=== PATIENT | female | born 1950 | race Caucasian/White ===

== ENCOUNTER → 2023-04-10 01:55 | Outpatient (CLI) | payer MEDICARE, OTHER, SELFPAY ==
[2023-04-10] MEDS: Regadenoson 0.4 MG/5 ML SYR IVP (13:23)
--- NOTE | 2023-04-10 13:45 | DI.NM_ITS ---
APPROVED REPORT Exam: Pharmacologic Patient Location: Out-Patient Room/Bed: Stress Nurse: Brianna Tapia RN Ordering Provider:ISSAC MONTENEGRO, Contact Number: BMI: 26.77 Baseline Rhythm: Sinus Rhythm Comment: PVC's, intermittent bigeminy Indications: SOB, Chest pain, COPD Medical History Medical History: Emphysema, COPD, HTN, HLD, hypothyroidism, Depression, Essential tremor Cardiac Medications: Losartan, Albuterol, Rosuvastatin, Timolol Maleate Allergies: Ibuprofen, simvastatin Cardiac Risk Factors: HTN, HLD, Current smoker, COPD Previous Cardiac Procedures: None Pretest Chest Pain Characteristics: None Exercise History: Sedentary Physical Disabilities: Essential tremor, unsteady gait Lung Sounds: Diminished throughout Heart Sounds: Regular Stress Test Details Test: Pharmacologic stress testing performed using 0.4 mg of regadenoson per 5 mL given IV over 10 s econds. Reason for pharmacologic stress test: physical limitation, safety. Nuclear Acquisition: Rest Tc-99m/Stress Tc-99m 1 day Rest Isotope: Tc-99m Sestamibi. Dose: 10 Date: 04/10/2023 Injection Time: 11:00 Stress Isotope: Tc-99m Sestamibi. Dose: 31 Date: 04/10/2023 Injection Time: 13:10 HR Resting HR Supine: 65 bpm Max Heart Rate (APMHR): 149 bpm Resting HR Standin bpm Target HR (85% APMHR): 127 bpm Max HR Achieved: 77 bpm % of APMHR: 52 Recovery HR: 69 bpm BP Resting BP Supine: 156/60 mmHg Resting BP Standin/60 mmHg Max BP: 156/60 mmHg Recovery BP: 104/60 mmHg ECG Resting ECG: Clear Ectopy: PVC's, Bigeminy Stress ECG: Sinus Rhythm ST Change: No significant ST segment changes noted Arrhythmia: Bigeminy, Trigeminy Recovery ECG: Sinus Rhythm Recovery ST Change: No significant ST segment changes noted Recovery Arrhythmia: Frequent PVC's Clinical Stress Symptoms: shortness of breath Rate Pressure Product: [id number] Stress ECG Conclusion 1. Resting electrocardiogram showed nondiagnostic ST-T abnormalities 2. Patient underwent testing using pharmacologic stress with regadenoson 3. Peak heart rate achieved was 52% of predicted for age 4. PVCs were noted including periods of bigeminy 5. See MPI report Stress Test Summary STAGE HR BP SpO2 Symptoms NOTES Supine 65 156/60 97% Standing 67 116/60 1 min post Lexiscan injection 77 100/80 shortness of breath 3 min post Lexiscan injection 71 104/54 6 min post Lexiscan injection 69 104/60 98% Attempted walking lexiscan but patient was very temulous and there was increased artificat on 12 lead . Team had the patient return to the stretcher to complete test as a laying lexiscan. MPI Conclusion Myocardial perfusion is normal. There is no ischemia or evidence of prior infarction Ejection fraction is 66% with normal wall motion
== END ==
PROVIDERS: Visit Provider Physician Assistant Medical
DX: R06.02 Shortness of breath (principal)
CPT/HCPCS: 78452; 93016; 93018; 93017; J2785